=== PATIENT | female | born 1940 | race Caucasian/White ===

== ENCOUNTER 2017-01-05 20:32 | Emergency (ER) | payer OTHER ==
[~2017-01-05 20:32] MED LIST: AMOX875T2 PO; FLON0.053; FORT200S; GEOD80CA PO; LEVO125T3 PO; LITH300 PO; LORTA5 PO; OMEP20TA PO; PROP40TA3 PO; SIMV20 MT; TRAZ100 PO; ULTR50TA PO; Z.0.UNKNOWN
[2017-01-05 20:38] VITALS: BP 123/71; PULSE 76; RESP 16; TEMP 98.7; O2SAT 96
[2017-01-05 20:54] VITALS: BP 136/68; PULSE 78; RESP 18; TEMP 98.7; O2SAT 96
[2017-01-05] MEDS ORDERED: TRAZ100T4 PO (21:08)
[2017-01-05] MEDS ORDERED: LEVO125T4 PO (21:08)
[2017-01-05] MEDS ORDERED: PROP40TA3 PO (21:08)
[2017-01-05] MEDS ORDERED: ZIPR1CAP12 PO (21:08)
[2017-01-05] MEDS ORDERED: FLUT1SPR5 EACH NARE (21:08)
[2017-01-05] MEDS ORDERED: ZOCO20TA PO (21:08)
[2017-01-05] MEDS ORDERED: CALC200S NASAL (21:08)
[2017-01-05] MEDS ORDERED: LITH300C2 PO (21:08)
[2017-01-05] MEDS ORDERED: OMEP20CA2 (21:08)
--- NOTE | 2017-01-05 21:57 | PD ---
HPI Chief Complaint: Musculoskeletal Complaint Time Seen by Provider: 21:27 Travel History International Travel<30 days: No Contact w/Intl Traveler<30days: No Traveled to known affect area: No History of Present Illness HPI The patient is a 76-year-old female that has chronic pain in the right shoulder. She fell a week ago and this exacerbated it. She complains of pain in the right shoulder and chest. She denies any shortness of breath. She has had breast cancer. PFSH Past Medical History Arthritis: Yes Asthma: Yes Anxiety: Yes Depression: Yes (HX OF POST-) Cancer: Yes (RIGHT BREAST) Cardiovascular Problems: No High Cholesterol: Yes Diabetes: No Diminished Hearing: No Endocrine: Yes GERD: Yes Genitourinary: Yes (INCONTINANCE, "BLADDER HAS DROPPED) Hepatitis: No Hiatal Hernia: No Hypertension: Yes Immune Disorder: No Musculoskeletal: Yes (OSTEOPOROSIS, OSTEOARTHRITIS) Neurologic: No Psychiatric: Yes (HX OF "NERVOUS BREAKDOWN" AND BIPOLAR) Respiratory: No Radiation Therapy: Yes (AFTER LUMPECTOMY OF RIGHT BREAST) Thyroid Disease: Yes Ulcer: Yes (CHRONIC ULCERS) Tetanus Vaccination: > 5 Years Influenza Vaccination: No ?: Not Menopausal: Yes Past Surgical History Abdominal Surgery: No AICD: No Cardiac Surgery: No Ear Surgery: No Endocrine Surgery: Yes (PT STATES " ONE THYROID REMOVED") Eye Surgery: No Genitourinary Surgery: No Gynecologic Surgery: Yes (BLADDER LIFT AND VAGINAL REPAIR, RIGHT BREAST LUMPECTOMY CANCER) Hysterectomy: Yes Joint Replacement: No Oral Surgery: Yes (TONSILLECTOMY) Pacemaker: No Thoracic Surgery: No Tonsillectomy: Yes Other Surgery: Yes (BLADDER TUCK, LUMPECTOMY RIGHT BREAST, HEMMORRHOIDECTOMY) Social History Alcohol Use: No Tobacco Use: No (1 PPD) Substance Use: No Allergies-Medications (Allergen,Severity, Reaction): Coded Allergies: Erythromycin (Verified Allergy, Severe, 01/05/17) Relafen (Verified Allergy, Severe, 01/05/17) Vioxx (Verified Allergy, Severe, 01/05/17) Ibuprofen (Verified Allergy, Intermediate, Swelling, 01/05/17) Cleocin (Verified Adverse Reaction, Severe, 01/05/17) Darvocet-N 100 (Verified Adverse Reaction, Severe, 06/19/11) Daypro (Verified Adverse Reaction, Severe, 01/05/17) Motrin (Verified Adverse Reaction, Severe, 01/05/17) Zantac (Verified Adverse Reaction, Severe, 01/05/17) Adhesives (Verified Adverse Reaction, Mild, RASH, 01/05/17) Uncoded Allergies: "NERVE MEDICINES" (Allergy, Severe, 03/22/08) Reported Meds & Prescriptions Reported Meds & Active Scripts Active Tramadol (Tramadol HCl) 50 Mg Tab 50 Mg PO Q6H PRN Reported Ziprasidone 80 Mg Cap 80 Mg PO HS Trazodone (Trazodone HCl) 100 Mg Tab 100 Mg PO HS Zocor (Simvastatin) 20 Mg Tab 20 Mg PO DAILY Propranolol (Propranolol HCl) 40 Mg Tab 40 Mg PO DAILY Omeprazole 20 Mg Cap [place] Carbonate 300 Mg Cap 300 Mg PO HS Levothyroxine (Levothyroxine Sodium) 125 Mcg Tab 125 Mcg PO DAILY Flonase Nasal [place] (Fluticasone Nasal [place]) 50 Mcg/Act [place] 100 Mcg EACH NARE BID Calcitonin (Vesta) Nasal [place] (Calcitonin Vesta) 200 Unit/Act [place] 1 [place] NASAL DAILY Alternate nostrils daily. Review of Systems Except as stated in HPI: all other systems reviewed are Neg Physical Exam Narrative GENERAL: The patient is alert, oriented 3 and slight apparent distress with her right shoulder pain. Her vital signs are normal. SKIN: Focused skin assessment warm/dry. HEAD: Atraumatic. Normocephalic. EYES: Pupils equal and round. No scleral icterus. No injection or drainage. ENT: No nasal bleeding or discharge. Mucous membranes pink and moist. NECK: Trachea midline. No JVD. CARDIOVASCULAR: Regular rate and rhythm. No murmur appreciated. RESPIRATORY: No accessory muscle use. Clear to auscultation. Breath sounds equal bilaterally. GASTROINTESTINAL: Abdomen soft, non-tender, nondistended. Hepatic and splenic margins not palpable. MUSCULOSKELETAL: No obvious deformities. No clubbing. No cyanosis. No edema. There is tenderness without deformity of the right shoulder. Good capillary refill and pinprick is present distally on the right hand. NEUROLOGICAL: Awake and alert. No obvious cranial nerve deficits. Motor grossly within normal limits. Normal speech. PSYCHIATRIC: Appropriate mood and affect; insight and judgment normal. Data Data Last Documented VS Vital Signs Date Time Temp Pulse Resp B/P Pulse Ox O2 Delivery O2 Flow Rate FiO2 01/05/17 20:54 78 18 4/17/17 20:54 98.7 136/68 96 Room Air Orders Shoulder, Complete (>2vws) (01/05/17 21:27) Chest, Pa & Lat (01/05/17 21:28) Tramadol (Ultram) (01/05/17 23:15) MDM Medical Decision Making Medical Screen Exam Complete: Yes Emergency Medical Condition: Yes Medical Record Reviewed: Yes Interpretation(s) The chest x-ray shows an old deformity of the right rib cage, she has had breast cancer on the right and she states that is the cause of the deformity. The right third and fourth ribs are fractured. Differential Diagnosis Fracture shoulder, dislocation shoulder, fracture ribs, pneumothoraxunlikely Narrative Course The patient has contusion shoulder as well as third and fourth rib fractures. Plan: The patient will be given a prescription for tramadol for pain. She should cough and deep breathe to make sure her lungs clean themselves out. Diagnosis Primary Impression: Fracture of ribs, multiple, closed Additional Impression: Contusion of right shoulder Additional Instructions: Do not drink alcohol or drive on the tramadol. As we discussed, cough and deep breathethis is how the lungs clean themselves out. Follow-up with your primary care physician next week. Med/Other Pt SpecificInfo: Prescription(s) given Scripts Tramadol 50 Mg Tab50 Mg PO Q6H PRN (PAIN) #30 TAB Ref 0 Prov:Hamilton Guzman MD 01/05/17 Disposition: 01 DISCHARGE HOME Condition: Stable Hamilton Guzman MD Jan 05, 2017 21:57
--- NOTE | 2017-01-05 23:06 | RADHPO ---
EXAM DATE/TIME: 01/05/2017 22:33 [facility] COMPARISON: No previous studies available for comparison. INDICATIONS : Chest pain. MEDICAL HISTORY : Carcinoma, breast. SURGICAL HISTORY : Mastectomy, right. ENCOUNTER: Initial ACUITY: 1 day PAIN SCORE: 0/10 LOCATION: Left chest FINDINGS: PA and lateral views of the chest demonstrate deformity of the right rib cage. There may be a fractu re of the third rib. The cardiomediastinal contours are unremarkable. Osseous structures are intact . CONCLUSION: Deformity the right rib cage and a questionable fracture of the right third rib. Jamel Barrow MD on January 05, 2017 at 23:01 Board Certified Radiologist. This report was verified electronically.
--- NOTE | 2017-01-05 23:09 | RADHPO ---
EXAM DATE/TIME: 01/05/2017 22:38 [facility] COMPARISON: No previous studies available for comparison. INDICATIONS : Right shoulder pain, no injury. MEDICAL HISTORY : None. SURGICAL HISTORY : None. ENCOUNTER: Initial ACUITY: 3 weeks PAIN SCORE: 2/10 LOCATION: Right proximal shoulder FINDINGS: Multiple view examination of the right shoulder demonstrates no evidence of dislocation. The glenohu meral and acromioclavicular joints are maintained. There is normal range of motion between internal and external rotation. Bony mineralization is normal. Fractures of the right third and fourth ribs. Possible loose body in the subcoracoid recess. CONCLUSION: Unremarkable examination of the right shoulder in regards to fracture. Third and fourth ribs are fra ctured. Jamel Barrow MD on January 05, 2017 at 23:06 Board Certified Radiologist. This report was verified electronically.
[2017-01-05] MEDS ORDERED: TRAM50TA PO (23:11)
[2017-01-05] MEDS ORDERED: traMADol HCL 50 MG TAB PO ONE (23:15)
[2017-01-06 00:18] VITALS: BP 128/65; PULSE 74; RESP 18; O2SAT 97
== END 2017-01-06 00:21 | disposition home or self-care (01) ==
LOC: PHED 20:32
DX: S22.41XA Multiple fractures of ribs, right side, initial encounter for closed fracture (principal); S40.011A Contusion of right shoulder, initial encounter; J45.909 Unspecified asthma, uncomplicated; F41.9 Anxiety disorder, unspecified; E78.00 Pure hypercholesterolemia, unspecified; I10 Essential (primary) hypertension; M19.90 Unspecified osteoarthritis, unspecified site; Z90.11 Acquired absence of right breast and nipple; W19.XXXA Unspecified fall, initial encounter
CPT/HCPCS: 71020; 73030; 99283